=== PATIENT | male | born 1965 | race Caucasian/White ===

== ENCOUNTER 2021-09-24 08:48 | Outpatient (CLI) | payer BC, SELFPAY ==
[2021-09-24 13:49] LABS: Creatinine Urine 221.4 mg/dL
[2021-09-24 13:55] LABS: Microalbumin Creatinine Ratio 0 mg/g (0-30); Microalbumin Urine 1 mg/dL
[2021-09-24 14:37] LABS: Albumin* 4.1 g/dL (3.3-5.0)
[2021-09-24 14:38] LABS: Chloride* 102 mmol/L (96-114); Potassium* 4.5 mmol/L (3.6-5.1); Sodium* 137 mmol/L (135-149)
[2021-09-24 14:40] LABS: Bilirubin Total* 0.6 mg/dL (0.1-1.5); Carbon Dioxide* 30 mmol/L (20-32); Cholesterol* 144 mg/dL (90-199); Creatinine* 0.8 mg/dL (0.5-1.5); Estimated Glomerular Filt Rate 105 ml/min
[2021-09-24 14:41] LABS: Alanine Aminotransferase* 30 U/L (4-50); Alkaline Phosphatase* 69 U/L (40-150); Aspartate Amino Transferase* 20 U/L (12-35); Blood Urea Nitrogen* 18 mg/dL (7-30); Glucose* 272 mg/dL (60-115); Total Protein* 6.9 g/dL (6.0-8.3); Triglycerides* 202 mg/dL (40-149)
[2021-09-24 14:42] LABS: HDL Cholesterol* 34 mg/dL (>=40); LDL Cholesterol Calculated 70 mg/dL (<100)
[2021-09-24 15:11] LABS: PSA Screen* 3.66 ng/mL (0.10-4.00)
== END 2021-09-24 08:49 | disposition home or self-care (01) ==
PROVIDERS: PCP Family Medicine; Visit Provider Family Medicine
DX: Z00.00 Encounter for general adult medical examination without abnormal findings (principal); E11.9 Type 2 diabetes mellitus without complications; E66.9 Obesity, unspecified; J30.2 Other seasonal allergic rhinitis; N40.1 Benign prostatic hyperplasia with lower urinary tract symptoms; E78.00 Pure hypercholesterolemia, unspecified; Z76.89 Persons encountering health services in other specified circumstances; Z87.898 Personal history of other specified conditions
CPT/HCPCS: 80053; 80061; 82043; 82570; 84153

== ENCOUNTER 2021-12-17 09:04 | Outpatient (CLI) | payer BC, SELFPAY | END 2021-12-17 09:05 | disposition home or self-care (01) | LOC: LKVREF 09:05 | PROVIDERS: PCP Family Medicine; Visit Provider Family Medicine | DX: Z00.00 Encounter for general adult medical examination without abnormal findings (principal); E78.00 Pure hypercholesterolemia, unspecified; E11.9 Type 2 diabetes mellitus without complications | CPT/HCPCS: 80053; 80061 ==

== ENCOUNTER 2023-01-27 07:22 | Outpatient (CLI) | payer BC, SELFPAY | END 2023-01-27 07:23 | disposition home or self-care (01) | LOC: NFLDREF 14:46 | PROVIDERS: PCP Family Medicine; Referring Provider Family Medicine; Visit Provider Family Medicine | DX: E78.00 Pure hypercholesterolemia, unspecified (principal) | CPT/HCPCS: 80053; 80061; 82043; 82570 ==